=== PATIENT | female | born 1995 | race Caucasian/White ===

== ENCOUNTER 2017-08-22 05:27 | Day surgery (SDC) | payer OTHER ==
[~2017-08-22] VITALS: Ht 160 cm; Wt 117.0 kg
--- NOTE | ~2017-08-22 | O ---
[facility] [place] [address] OPERATIVE REPORT Name: PHANI CABRERA Room #: 150-4 [facility]..#: [id number] Admission: 08/22/17 Attend Phys: Evans Butterfield MD Discharge: Date of : 89 Report #: [id number] THIS REPORT FOR: //name// CC: FE physician/PCP Evans Butterfield DATE OF SERVICE: 08/22/2017 PREOPERATIVE DIAGNOSES: 1. Left ankle instability. 2. Left ankle synovitis. POSTOPERATIVE DIAGNOSES: 1. Left ankle instability. 2. Left ankle synovitis. PROCEDURE: 1. Left ankle arthroscopic debridement with synovectomy. 2. Left ankle Brostrom-Vazquez lateral ligament reconstruction. SURGEON: Evans Butterfield M.D. ANESTHESIA: General. ESTIMATED BLOOD LOSS: Minimal. DRAINS: None. TOURNIQUET TIME: 45 minutes. DESCRIPTION OF PROCEDURE: The patient brought to the operating room where she was placed under general anesthesia. Once under adequate general anesthesia, her left lower extremity was prepped and draped in a sterile manner. The extremity was elevated, exsanguinated, tourniquet placed to 300 mmHg. A Guhl ankle distractor was then placed across the joint. An anteromedial and anterolateral arthroscopic portal was made in usual fashion. Examination of the joint noted significant synovitis in infra-syndesmotic region and synovectomy was performed there with the arthroscopic shaver. Once complete, the arthroscopic equipment was removed. The remainder of the cartilage surfaces had been examined and appeared to be clean of any lesions. Therefore, the wound was irrigated copiously and the arthroscopic equipment was removed. The extremity was removed from the arthroscopic thigh support and a curvilinear incision was made just distal to the fibula. This was dissected down through the soft tissue to the inferior extensor retinaculum, which was identified and tagged for later use. The anterior talofibular ligament and calcaneofibular ligament were then subsequently incised through the mid portions. Exposure was then made of the [address] [address] OPERATIVE REPORT Name: PHANI CABRERA Room #: 150-4 [facility] M..#: [id number] Admission: 08/22/17 Attend Phys: Evans Butterfield MD Discharge: Date of : 89 Report #: [id number] ATFL and the CFL. A drill hole was then placed for the internal brace at the stump of the ATFL. This was then tapped. A drill was then placed into the fibula as well, which was then also tapped and the internal brace was then placed with the ankle held in neutral position. Excellent fixation was achieved in this manner. The Brostrom procedure was then completed utilizing 0 Ethibond suture to repair the ATFL and the CFL in a shortened position and advancing the inferior extensor retinaculum to the periosteum of the fibula to complete the repair. Once complete, the wound was irrigated copiously and closed with 2-0 Vicryl in subcutaneous tissues and jae were used for the skin. The wounds were dressed with Xeroform, 4 x 4s, and sterile soft compressive dressing was placed along with a short leg cast in eversion. Tourniquet was let down approximately 45 minutes. Toes were pink and warm with good capillary refill. There were no complications from the procedure. The patient tolerated the procedure well and was taken to recovery room without incident. By: 1613 [id number] Evans Butterfield MD /nt
[~2017-08-22 05:27] MED LIST: MIDOL220 MG PO; VENTOLIN HFA 1818 GM INH
[2017-08-22 13:19] VITALS: BP 139/90
[2017-08-22] MEDS ORDERED: PERCOCET 7.5-31 EACH PO (15:25)
[2017-08-22] MEDS ORDERED: ASA5UEC PO (15:25)
[2017-08-22 15:42] VITALS: BP 139/90
== END 2017-08-22 16:00 | disposition home or self-care (01) ==
LOC: OR 05:27 → TBA 05:28 → OR 10:44
DX: M25.372 Other instability, left ankle (principal); M65.872 Other synovitis and tenosynovitis, left ankle and foot; J45.909 Unspecified asthma, uncomplicated; Z98.890 Other specified postprocedural states; Z90.49 Acquired absence of other specified parts of digestive tract; Z79.82 Long term (current) use of aspirin; Z79.899 Other long term (current) drug therapy; Z79.891 Long term (current) use of opiate analgesic
CPT/HCPCS: 50010; 50101; 50386; 51038; 51412; 51647; 55430; 56524; 56526; 56529; 57091; 57103; 62110; 62900; 70005